=== PATIENT | male | born 1985 | race Caucasian/White ===

== ENCOUNTER 2019-10-21 18:20 | Emergency (ER) | payer OTHER, SELFPAY ==
[2019-10-21 18:32] VITALS: BP 144/88; PULSE 91; RESP 16; TEMP 36.9; O2SAT 98; BMI 35.4
--- NOTE | 2019-10-21 21:03 | ED.WOUNDLAC ---
HPI - Wound/Laceration General Chief Complaint: Wound/Laceration Stated Complaint: Cut Middle Finger, Lt Hand Time Seen by Provider: 10/21/19 21:00 Source: patient Mode of arrival: Ambulatory Limitations: no limitations History of Present Illness HPI narrative: 34-year-old male here for evaluation of a laceration to his left middle finger. Patient is right-hand dominant. He states he was trying to cut a piece of fruit at home when he cut his finger with the knife. Covered with bandage prior to arrival. Patient is up-to-date on tetanus. Related Data Allergies Allergy/AdvReac Type Severity Reaction Status Date / Time No Known Drug Allergies Allergy Verified 10/21/19 18:32 Review of Systems Constitutional Constitutional: Denies headache(s) ENT Ears, Nose, Mouth, and Throat: Denies headache(s) Musculoskeletal Musculoskeletal: Denies arthralgias, Denies myalgias and Denies tingling Integumentary/Breasts Comments: Cut to left middle finger Neurologic Neurologic: Denies headache(s) and Denies tingling Hematologic/Lymphatic Hematologic/Lymphatic: Denies easy bleeding and Denies easy bruising Patient History Medical History Healthy adult (Acute) Social History Smoking Status: Never smoker Smoking Status: Never smoker alcohol intake frequency: 0-2 drinks per day Substance Use Type: does not use Exam Initial Vital Signs Initial Vital Signs: Vital Signs Temperature 98.5 F 10/21/19 18:32 Pulse Rate 91 H 10/21/19 18:32 Respiratory Rate 16 10/21/19 18:32 Blood Pressure 144/88 H 10/21/19 18:32 Pulse Oximetry 98 10/21/19 18:32 Const General: cooperative and comfortable Limitations: mental status not altered HENVA Head: normal to inspection and normocephalic Cardio Pulses: radial pulses present on the left Skin Other: Patient has a ?U? shaped laceration on the radial side of the left middle finger over top of the PIP joint. No active bleeding. Extrem Other: Patient with active and passive range of motion against resistance of the PIP and D IP joint of the left middle finger Procedures Laceration Repair Laceration 1: Site: other (Middle finger) Side (If applicable): left Size (cm): 1.5 Description: other (U shaped) Depth: simple, single layer Pre-repair: wound explored, irrigated extensively and deep structures intact Skin layer closed with: steri-strips Course Vital Signs Vital signs: Vital Signs - 8 hr 10/21/19 18:32 10/21/19 21:33 Temperature 98.5 F Pulse Rate 91 H 86 Respiratory Rate 16 14 Blood Pressure 144/88 H 131/93 H Pulse Oximetry 98 97 MDM - Wound/Laceration MDM Narrative Medical decision making narrative: Neurovascular intact, tetanus is updated, deep structures intact. Laceration closed as described above. Care and return precautions given to patient. He expressed understanding and agreement with plan. Discharge Plan Departure Patient Disposition: Home Clinical Impression: Laceration Discharge Date/Time: 10/21/19 21:34 Instructions: DI for Minor Laceration Activity Restrictions/Additional Instructions: You can wash your hands like normal after 24 hours. Contact your primary provider for follow-up. Return to the emergency department for any new or worsening symptoms Referrals: Mathew Nettles MD [Primary Care Provider] -
--- NOTE | 2019-10-21 21:21 | PC.NURSE ---
patient was cutting watermelon and slipped with the knife and shaved his finger. He has a superficial skin flap on his finger. He has been holding pressure and his finger has stopped bleeding
[2019-10-21 21:33] VITALS: BP 131/93; PULSE 86; RESP 14; O2SAT 97
== END 2019-10-21 21:34 | disposition home or self-care (01) ==
PROVIDERS: Emergency Provider Emergency Medicine; PCP General Practice
DX: S61.213A Laceration without foreign body of left middle finger without damage to nail, initial encounter (principal); W26.0XXA Contact with knife, initial encounter
CPT/HCPCS: 99282

== ENCOUNTER 2020-12-08 19:41 | Emergency (ER) | payer OTHER, SELFPAY ==
[2020-12-08 20:19] VITALS: BP 135/93; PULSE 91; RESP 16; TEMP 36.9; O2SAT 96; BMI 35.4
--- NOTE | 2020-12-08 20:22 | DI.RAD.S_ITS ---
PROCEDURE: XR FINGER LT MIN 2V INDICATIONS: injury to L 3rd finger TECHNIQUE: AP hand, 2 views of the 3rd finger(s) acquired. COMPARISON: None. FINDINGS: Bones: No fractures or dislocations. No suspicious bony lesions. Soft tissues: No suspicious soft tissue calcifications. IMPRESSION: No fracture or dislocation. If clinical symptoms persist or clinical suspicion for pathology is high, a repeat examination in 7-10 days, or advanced imaging such as CT or MRI is suggested for further evaluation. Dictated by: Christiana Emanuel M.D. on 12/08/2020 at 20:43 Approved by: Christiana Emanuel M.D. on 12/08/2020 at 20:45
--- NOTE | 2020-12-08 21:07 | ED_ITS ---
HPI - Extremity Injury (Upper) General Chief Complaint: Extremity Injury, Upper Stated Complaint: Mallet Finger On Left Middle Finger Time Seen by Provider: 12/08/20 19:56 Source: patient Mode of arrival: Ambulatory History of Present Illness HPI narrative: 35-year-old male nonsmoker with noncontributory medical history presents with family in the chief complaint of an injury to his left middle finger. He states that he was changing the sheets on his bed when he rammed his hand into a hard object and felt a pop on the tip of his finger, and now has a deformity and he is unable to extend at the distal knuckle. He has minimal pain and denies numbness tingling or weakness. He is otherwise well and free of complaint Related Data Allergies Allergy/AdvReac Type Severity Reaction Status Date / Time No Known Drug Allergies Allergy Verified 12/08/20 20:19 Review of Systems Review of Systems Narrative: GENERAL: Denies chills, fatigue, malaise, fever, sweats. HEENT: Denies sinus pain, ear pain, sore throat, difficulty swallowing, dizziness. RESPIRATORY: Denies dyspnea, cough, wheezing, hemoptysis, sputum. CARDIOVASCULAR: Denies chest pain, palpitations, orthopnea, edema, GASTROINTESTINAL: Denies nausea, vomiting, abdominal pain, diarrhea, constipation, melena. : Denies dysuria, frequency, incontinence, hematuria, urinary retention. MUSCULOSKELETAL: See HPI SKIN: Denies rash, skin lesions, or other NEUROLOGIC: Denies weakness, headache, numbness, change in speech, confusion, seizures, incoordination. PSYCHIATRIC: No concerning psychosocial issues. 12 point review of systems is negative except for those stated above Patient History Medical History Healthy adult Social History Smoking Status: Never smoker Smoking Status: Never smoker alcohol intake frequency: 0-2 drinks per day Substance Use Type: does not use Exam Narrative Exam Narrative: GEN: AOx3 and in mild distress EYES: Pupils are equal, round, and reactive to light and accommodation. Extraoccular muscles are intact bilaterally. There is no subconjunctival hemorrhage or exudate. CHEST: Lungs are clear to auscultation bilaterally and free of wheezes, rales, or rhonchi. Heart rate is regular rhythm, there are no murmurs, clicks, rubs, or gallops. There is no chest wall tenderness. ABD: Abdomen is soft and nontender. There is no guarding or rebound. Bowel sounds are normal in all 4 quadrants. There is no mass or organomegaly. EXT: Minimal pain but decreased range of motion secondary to mechanical obstruction of the left middle finger, distal phalanx. It seems to be held in flexion and patient cannot actively extend at the D IP of the middle finger. This is closed, isolated and neurovascularly intact, consistent with mallet finger SKIN: Warm, pink, and dry. No erythema or rash Initial Vital Signs Initial Vital Signs: Vital Signs Temperature 98.5 F 12/08/20 20:19 Pulse Rate 91 H 12/08/20 20:19 Respiratory Rate 16 12/08/20 20:19 Blood Pressure 135/93 H 12/08/20 20:19 Pulse Oximetry 96 12/08/20 20:19 Procedures Orthopedic Splinting/Casting Injury #1: Upper Extremity Injury Location: finger Upper Extremity Immobilizer: finger (other) (holding distal finger in forced extension) Post splinting neuro exam: intact Post splinting vascular exam: intact Placed by: Nursing Course Orders Ordered: ED Orders 12/08/20 20:22 XR finger LT min 2V Stat Consultations Consultation #1: discussed with percussion instrument tuner ortho, recommends splinting in forced extension. Close follow up Vital Signs Vital signs: Vital Signs - 8 hr 12/08/20 20:19 12/08/20 21:36 Temperature 98.5 F 97.2 F L Pulse Rate 91 H Respiratory Rate 16 Blood Pressure 135/93 H Pulse Oximetry 96 MDM - Extremity Injury (Upper) Imaging Data Extremity x-ray #1: Radiologist's Impression: Launch?[address] [address] XRay Report Signed Patient: Omar Najera MR#: [id number] : 1985 Acct:[id number] Age/Sex: 35 / M Date of Service: 12/08/20 Loc: ED Accession Number: [id number] ?? Procedure: XR finger LT min 2V Ordering Provider: Shawn Marie D.O. PROCEDURE:? XR FINGER LT MIN 2V ? INDICATIONS:? injury to L 3rd finger ? TECHNIQUE:? AP hand, 2 views of the 3rd finger(s) acquired.? ? COMPARISON:? None. ? FINDINGS:? ? Bones:? No fractures or dislocations.? No suspicious bony lesions.? ? Soft tissues:? No suspicious soft tissue calcifications.? ? IMPRESSION:? No fracture or dislocation.? ? If clinical symptoms persist or clinical suspicion for pathology is high, a repeat examination in 7-10 days, or advanced imaging such as CT or MRI is suggested for further evaluation. ? ? Dictated by: Christiana Emanuel M.D. on 12/08/2020 at 20:43 ? ? Approved by: Christiana Emanuel M.D. on 12/08/2020 at 20:45 ? Discharge Plan Departure Patient Disposition: Home Clinical Impression: Mallet deformity of left middle finger Instructions: Finger Extensor Tendon Injury Activity Restrictions/Additional Instructions: *You have been diagnosed with [mallet injury to left middle finger, x-ray demonstrates no fracture or dislocation *What to do: *Please continue to take your regular medications as directed. [ ] New medication prescriptions sent to your pharmacy: [ ] [ ] New medication written as a paper prescription [x ] No new medications given *Please follow up with your primary care provider in 2-3 days, call for an appointment. Let them know you were seen in the Emergency Department and that we ask that you be seen in follow up. We will electronically transmit a record of today's note if your PCP is in our system * it is important that you get follow-up with orthopedics. 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 Breen at [facility] *Return to Emergency Department if you should have any new, worsening or concerning symptoms, such as [fever greater than 101 F, shaking chills, worsening pain, persistent vomiting or other bothersome symptoms] Referrals: Yahaira Marmolejo MD [Primary Care Provider] - Bridgette Breen MD [Physician] -
[2020-12-08 21:36] VITALS: TEMP 36.2
== END 2020-12-08 21:36 | disposition home or self-care (01) ==
PROVIDERS: Emergency Provider Emergency Medicine; PCP Internal Medicine
DX: M20.012 Mallet finger of left finger(s) (principal); S56.404A Unspecified injury of extensor muscle, fascia and tendon of left middle finger at forearm level, initial encounter; W23.0XXA Caught, crushed, jammed, or pinched between moving objects, initial encounter
CPT/HCPCS: 29130; 73140; 99281; 99283